=== PATIENT | female | born 1955 | race Caucasian/White ===

== ENCOUNTER 2024-09-20 18:53 | Emergency (ER) | payer MEDICARE, SELFPAY ==
--- NOTE | ~2024-09-20 | XR_ITS ---
EXAMINATION: XR chest 2V DATE: 09/20/2024 20:32 INDICATION: 9 days of cough TECHNIQUE: frontal and lateral views of the chest were obtained. COMPARISON: Chest radiograph dated 12/24/[address] dated 12/25/2013 FINDINGS: Unchanged mild streaky lingular atelectasis/scarring at the anterior left lower lung zone. No other a irspace opacities, pulmonary edema, pleural effusion or pneumothorax. The cardiomediastinal silhouett e is normal. Mild S-shaped scoliosis of the upper to midthoracic spine with moderate spondylosis. IMPRESSION: 1. Unchanged mild streaky basilar atelectasis/scarring. No other acute cardiopulmonary disease. Reviewed, dictated and finalized at location A. IMPRESSION: 1. Unchanged mild streaky basilar atelectasis/scarring. No other acute cardiopu lmonary disease.
[2024-09-20 19:33] VITALS: BP 133/78; PULSE 115; RESP 18; O2SAT 94
--- NOTE | 2024-09-20 19:49 | ED.URI ---
HPI - URI/Sore Throat General Chief Complaint: Upper Respiratory Infection Stated Complaint: cough Time Seen by Provider: 09/20/24 19:36 History of Present Illness HPI Narrative: Pt presents with a productive cough for 9 days. Pt took prednisone taper she had not used from prior illness but this did not help. Pt went to [facility] and was told her HR was elevated and she should go to ER. Pt denies CP or SOB. Pt denies fever but does have sweats at some times. Pt denies calf pain and has not been on any recent trips or had recent surery. Related Data Allergies Allergy/AdvReac Type Severity Reaction Status Date / Time doxycycline Allergy Rash Verified 09/20/24 19:36 morphine Allergy Nausea and Verified 09/20/24 19:36 Vomiting Review of Systems Review of Systems: All systems reviewed & are unremarkable except as noted in HPI and below Exam Const: General: healthy appearing and no acute distress Nutritional Appearance: well nourished Orientation/consciousness: patient oriented x3 Limitations: no limitations HENMT: Face/Nose/Sinus: Normal external nose present Mouth: Yes Normal oral and palatal mucosa present and Yes moist mucous membranes Eyes: EOM: EOMs intact bilaterally Chest: Chest palpation & inspection: normal inspection of the chest Resp: Effort & Inspection: normal respiratory effort Auscultation: clear to auscultation bilaterally Cardio: Rate: tachycardic Rhythm: regular rhythm GI: GI Palp: Yes Soft to palpation and No Tenderness to palpation present (GI) Auscultation: normal bowel sounds Skin: General skin exam: normal color Rashes: no rashes Neuro: General: patient oriented x3, moves all extremities, no meningeal signs and no focal motor deficits Cranial nerves: Yes Nystagmus not present Speech: normal speech Extrem: General: normal to inspection and no clubbing, cyanosis or edema Psych: Mental Status: mental status grossly normal Affect: normal affect Attitude: cooperative Course Vital Signs Vital signs: Vital Signs Pulse Rate 115 H 09/20/24 19:33 Respiratory Rate 18 09/20/24 19:33 Blood Pressure 133/78 09/20/24 19:33 Pulse Oximetry 94 09/20/24 19:33 Oxygen Delivery Room Air 09/20/24 19:33 Pulse Rate 93 09/20/24 21:43 Respiratory Rate 18 09/20/24 21:43 Blood Pressure 133/67 09/20/24 21:43 Pulse Oximetry 100 09/20/24 21:43 Oxygen Delivery Room Air 09/20/24 19:33 MDM - URI/Sore Throat MDM Narrative Medical decision making narrative: labs and covid and flu and rsv neg cxr nad. home on z pack and prednisone. HR came dosn on its own Differential Diagnosis Differential diagnosis: Likely upper respiratory infection, viral infection, bronchitis, influenza and other (pneumonia, doubt PE but will get labs and ekg and cxr to start ) Lab Data 09/20/24 20:06 09/20/24 20:06 Labs: Lab Results 09/20/24 Range/Units 20:06 WBC 13.0 H (4.5-10.0) K/mm3 RBC 5.37 (4.2-5.4) M/mm3 Hgb 15.9 H (12.0-15.0) g/dL Hct 48.6 H (37.0-47.0) % MCV 90.5 (80-100) fl MCH 29.6 (26-34) pg MCHC 32.7 (32-36) g/dl RDW 14.2 (11.5-14.5) % Plt Count 289 (150-375) k/mm3 MPV 10.8 H (7.4-10.4) fl Immature Gran % (Auto) 0.7 H (0-0.5) % Neut % (Auto) 50.4 (45.5-73.1) % Lymph % (Auto) 40.6 (18.3-44.2) % [place] % (Auto) 6.4 (2.6-8.5) % Eos % (Auto) 1.5 (0-4.4) % Baso % (Auto) 0.4 (0.2-1.2) % Lymph # (Auto) 5.28 H (0.9-3.2) K/mm3 [place] # (Auto) 0.8 H (0.1-0.6) K/mm3 Eos # (Auto) 0.2 (0-0.3) K/mm3 Baso # (Auto) 0.1 (0.0-0.1) K/mm3 Abs Immat Gran (auto) 0.09 H (0.00-0.031) K/mm3 Absolute Neuts (auto) 6.6 (1.3-6.7) K/mm3 Absolute Nucleated RBC 0.000 (0.0-0.012) K/mm3 Nucleated RBC % 0.0 (0.0-0.2) % Sodium 136 L (137-145) mmol/L Potassium 4.4 (3.4-5.0) mmol/L Chloride 101 (98-107) mmol/L Carbon Dioxide 24 (22-30) mmol/L Anion Gap 11 (4-12) mmol/L BUN 16 (7-17) mg/d
--- NOTE | 2024-09-20 19:54 | ECG_ITS ---
Test Date: 2024-09-20 20:17:29 Measurements Intervals [place] Rate: 92 P: 54 ND: 167 QRS: 30 QRSD: 90 T: 46 QT: 362 QTc: 448 Interpretive Statements SINUS RHYTHM POSSIBLE LEFT ATRIAL ENLARGEMENT [-0.1mV P WAVE IN V1/V2] NONSPECIFIC ST ABNORMALITY ABNORMAL ECG No previous ECG available for comparison Electronically Signed On 09-21-2024 10:18:37 CDT by David Mcclendon M.D.
[2024-09-20] MEDS: SODIUM CHLORIDE 0.9% IV 1,000 ML 999 ML IV CONT (20:04)
[2024-09-20] MEDS: IPRATROPIUM 0.5 MG/ALBUTEROL SULFATE 2.5 MG AMPUL.NEB 3 ML INHALATION (20:04)
[2024-09-20 20:07] VITALS: PULSE 114; RESP 18
[2024-09-20 20:16] VITALS: PULSE 115; RESP 18
[2024-09-20 20:16] LABS: Basophils Absolute Auto 0.1 K/mm3 (0.0-0.1); Basophils Percent Auto 0.4 % (0.2-1.2); Eosinophils Absolute Auto 0.2 K/mm3 (0-0.3); Eosinophils Percent Auto 1.5 % (0-4.4); Hematocrit 48.6 % (37.0-47.0); Hemoglobin 15.9 g/dL (12.0-15.0); Immature Granulocyte Absolute 0.09 K/mm3 (0.00-0.031); Immature Granulocyte Percent A 0.7 % (0-0.5); Lymphocytes Absolute Auto 5.28 K/mm3 (0.9-3.2); Lymphocytes Percent Auto 40.6 % (18.3-44.2); Mean Corpuscular HGB Conc 32.7 g/dl (32-36); Mean Corpuscular Hemoglobin 29.6 pg (26-34); Mean Corpuscular Volume 90.5 fl (80-100); Mean Platelet Volume 10.8 fl (7.4-10.4); Monocytes Absolute Auto 0.8 K/mm3 (0.1-0.6); Monocytes Percent Auto 6.4 % (2.6-8.5); Neutrophils Absolute Auto 6.6 K/mm3 (1.3-6.7); Neutrophils Percent Auto 50.4 % (45.5-73.1); Platelet Count Result 289 k/mm3 (150-375); Red Blood Count 5.37 M/mm3 (4.2-5.4); Red Cell Distribution Width 14.2 % (11.5-14.5)
[2024-09-20 20:34] LABS: Alanine Aminotransferase 20 U/L (6-35); Albumin Level 4.9 g/dL (3.5-5.1); Alkaline Phosphatase 88 U/L (38-126); Anion Gap 11 mmol/L (4-12); Aspartate Amino Transferase 24 U/L (14-36); Bilirubin,Total 0.6 mg/dL (0.2-1.3); Blood Urea Nitrogen 16 mg/dL (7-17); Calcium 9.5 mg/dL (8.4-10.2); Carbon Dioxide 24 mmol/L (22-30); Chloride 101 mmol/L (98-107); Estimated CRCL calculation 75 ml/min; Estimated Glomerular Filt Rate > 60; Glucose 100 mg/dL (65-110); Potassium 4.4 mmol/L (3.4-5.0); Sodium 136 mmol/L (137-145)
[2024-09-20 20:39] VITALS: BP 103/59; BP 150/60; PULSE 63; PULSE 85; RESP 18; RESP 24; O2SAT 95; O2SAT 97
[2024-09-20 20:43] LABS: NT Pro B Type Natriuretic Pept 204 pg/mL (19.9-100)
[2024-09-20 20:56] LABS: Influenza A QL RT-PCR Negative (Negative); Influenza B QL RT-PCR Negative (Negative); RSV RNA, RT-PCR Negative (Negative); SARS-CoV-2 RNA PCR Negative (Negative)
[2024-09-20 21:43] VITALS: BP 133/67; PULSE 93; RESP 18; O2SAT 100
== END 2024-09-20 22:02 | disposition home or self-care (01) ==
PROVIDERS: Emergency Provider Emergency Medicine
DX: J40 Bronchitis, not specified as acute or chronic (principal); Z20.822 Contact with and (suspected) exposure to COVID-19
CPT/HCPCS: 36415; 71046; 80053; 83880; 85025; 87040; 87637; 93005; 94640; 96360; 99283; J7030